=== PATIENT | female | born 1995 | race Two or more races ===

== ENCOUNTER 2017-05-15 08:18 | Emergency (ER) | payer SELFPAY ==
[2017-05-15 08:33] VITALS: BP 115/74
--- NOTE | 2017-05-15 09:44 | ER Document Report ---
HPI - HPI Patient complains to provider of: skin rash Onset: Last week Onset/Duration: Persistent Pain Level: Denies Context: Patient complains of pruritic skin rash to right side of neck for the past week. Patient denies any new foods, medications or detergents. Patient denies any pain to the rash. Exacerbated by: Denies Relieved by: Denies Similar symptoms previously: No Recently seen / treated by doctor: No - ROS ROS below otherwise negative: Yes Systems Reviewed and Negative: Yes All other systems reviewed and negative - MUSCULOSKELETAL Musculoskeletal: DENIES: Neck Pain - DERM Skin Problems: Rash Past Medical History - General Information source: Patient - Social History Smoking Status: Unknown if Ever Smoked Chew tobacco use (# tins/day): No Frequency of alcohol use: Occasional Drug Abuse: None Occupation: None Family History: Reviewed & Not Pertinent Patient has suicidal ideation: No Patient has homicidal ideation: No - Medical History Medical History: Negative Renal/ Medical History: Denies: Hx Peritoneal Dialysis Past Surgical History: Reports: Hx Herniorrhaphy Vertical Provider Document - CONSTITUTIONAL Exam Limitations: No Limitations General Appearance: WD/WN, No Apparent Distress - INFECTION CONTROL TRAVEL OUTSIDE OF THE [place] IN LAST 30 DAYS: No - HEENT HEENT: Atraumatic, Normocephalic - NECK Neck: Normal Inspection, Supple - RESPIRATORY Respiratory: No Respiratory Distress O2 Sat by Pulse Oximetry: 97 - MUSCULOSKELETAL/EXTREMETIES Musculoskeletal/Extremeties: MAEW - NEURO Level of Consciousness: Awake, Alert, Appropriate Motor/Sensory: No Motor Deficit - DERM Integumentary: Warm, Dry, Rash - scaling papular rash to anterior aspect of right neck Course - Vital Signs Vital signs: Temp Pulse Resp BP Pulse Ox 98.8 F 114 H 16 115/74 97 05/15/17 08:32 05/15/17 08:32 05/15/17 08:32 05/15/17 08:32 05/15/17 08:32 Discharge - Discharge Clinical Impression: Skin rash Condition: Stable Disposition: HOME, SELF-CARE Instructions: Contact Dermatitis ([facility]), Use of Diphenhydramine, Topical Steroid Cream or Ointment ([facility]), Steroid Medication Additional Instructions: Return immediately for any new or worsening symptoms Followup with your primary care provider, call tomorrow to make a followup appointment Follow-up with dermatology for any continued problems Prescriptions: Prednisone [Deltasone 10 mg Tablet] 10 mg PO ASDIR PRN #21 tablet PRN Reason: Triamcinolone Acetonide [Aristocort 0.1% Cream] 1 applic TP TID #60 gm Referrals: RAVINDRA CONTRERAS DO [ACTIVE STAFF] - Follow up as needed
== END 2017-05-15 09:57 | disposition home or self-care (01) ==
LOC: ER 08:18
DX: R21 Rash and other nonspecific skin eruption (principal)
CPT/HCPCS: 99282